=== PATIENT | female | born 1965 | race Caucasian/White ===

== ENCOUNTER → 2023-08-16 10:53 | Outpatient (REF) | payer BC, SELFPAY ==
[2023-08-16 12:23] LABS: % Basophils 0.8 % (0-2); % Immature Granulocytes 0.2 % (0-0.5); % Lymphocytes 34.1 % (20.5-51.1); % Monocytes 9.5 % (1.7-9.3); % Neutrophils 51.4 % (42.2-75.2); Absolute Basophils 0.1 10^3/uL (0-0.2); Absolute Eosinophils 0.3 10^3/uL (0-0.7); Absolute Lymphocytes 2.2 10^3/uL (1.2-3.4); Absolute Monocytes 0.6 10^3/uL (0.1-0.6); Absolute Neutrophils 3.3 10^3/uL (1.4-6.5); Hematocrit 38.4 % (37.0-47.0); Hemoglobin 12.7 g/dL (12.0-16.0); Mean Corp Hgb Conc. 33.1 g/dL (33.0-37.0); Mean Corpuscular Hgb 30.1 pg (27.0-31.0); Mean Platelet Volume 9.4 fL (7.4-10.4); Nucleated Red Blood Cells % 0 %; Platelet Count 201 10^3/uL (130-400); Red Blood Cell Count 4.22 10^6/uL (4.20-5.40); Red Cell Dist. Width 12.5 % (11.5-14.5); White Blood Cell Count 6.4 10^3/uL (4.8-10.8)
[2023-08-16 12:25] LABS: Urine Albumin Negative (Neg - Trace); Urine Bilirubin Negative (Negative); Urine Character Clear (Clear); Urine Color Yellow; Urine Glucose Negative (Negative); Urine Ketone Trace (Negative); Urine Leukocyte Trace (Negative); Urine Nitrite Negative (Negative); Urine Occult Blood Negative (Negative); Urine Specific Gravity 1.025 (<1.030); Urine Urobilinogen Negative (Neg - 1+)
[2023-08-16 12:44] LABS: ALT (SGPT) 22 U/L (0-35); AST (SGOT) 29 U/L (14-36); Albumin 4.5 g/dl (3.5-5.0); Alkaline Phosphatase 64 U/L (38-126); Blood Urea Nitrogen 26 mg/dl (7-17); Calcium 9.3 mg/dl (8.4-10.2); Carbon Dioxide 28 mmol/L (22-30); Chloride 103 mmol/L (98-107); Glucose 101 mg/dl (70-99); Potassium 4.6 mmol/L (3.5-5.1); Sodium 137 mmol/L (135-145); Total Bilirubin 0.7 mg/dl (0.2-1.3); Total Protein 7.6 g/dl (6.3-8.2); eGFR > 60.00
[2023-08-16 12:58] LABS: Urine Red Blood Cell 0-2 /HPF (0-2); Urine Squamous Cell 0-2 /LPF (Few)
[2023-08-18 21:17] LABS: CCP Antibody IgG/IgA 6 Units (0-19)
[2023-08-19 16:19] LABS: Rheumatoid Agglutinin Less Than 10 IU (<10 IU)
== END ==
LOC: HWLAB 10:53
PROVIDERS: ATTENDING PHYSICIAN Internal Medicine Rheumatology; FAMILY PHYSICIAN Internal Medicine
DX: E03.9 Hypothyroidism, unspecified (principal); E55.9 Vitamin D deficiency, unspecified; H04.123 Dry eye syndrome of bilateral lacrimal glands; M25.551 Pain in right hip; M36.8 Systemic disorders of connective tissue in other diseases classified elsewhere; M51.37 Other intervertebral disc degeneration, lumbosacral region; M79.641 Pain in right hand; Z68.26 Body mass index [BMI] 26.0-26.9, adult; Z79.899 Other long term (current) drug therapy
CPT/HCPCS: 36415; 80053; 81003; 81015; 85025; 86140; 86200; 86430

== ENCOUNTER → 2024-01-31 08:22 | Outpatient (REF) | payer BC, SELFPAY ==
[2024-01-31 10:10] LABS: % Eosinophils 2.7 % (0-6); % Immature Granulocytes 0.2 % (0-0.5); % Lymphocytes 41.2 % (20.5-51.1); % Monocytes 9.3 % (1.7-9.3); % Neutrophils 45.6 % (42.2-75.2); Absolute Basophils 0.1 10^3/uL (0-0.2); Absolute Eosinophils 0.1 10^3/uL (0-0.7); Absolute Monocytes 0.5 10^3/uL (0.1-0.6); Absolute Neutrophils 2.2 10^3/uL (1.4-6.5); Hematocrit 39.2 % (37.0-47.0); Hemoglobin 13.3 g/dL (12.0-16.0); Mean Corp Hgb Conc. 33.9 g/dL (33.0-37.0); Mean Corpuscular Hgb 31.8 pg (27.0-31.0); Mean Corpuscular Volume 93.8 fL (81.0-99.0); Mean Platelet Volume 9.4 fL (7.4-10.4); Nucleated Red Blood Cells % 0 %; Platelet Count 184 10^3/uL (130-400); Red Blood Cell Count 4.18 10^6/uL (4.20-5.40); Red Cell Dist. Width 11.9 % (11.5-14.5); White Blood Cell Count 4.9 10^3/uL (4.8-10.8)
[2024-01-31 10:27] LABS: Urine Albumin Negative (Neg - Trace); Urine Bilirubin Negative (Negative); Urine Character Clear (Clear); Urine Color Yellow; Urine Glucose Negative (Negative); Urine Ketone Negative (Negative); Urine Leukocyte Trace (Negative); Urine Nitrite Negative (Negative); Urine Occult Blood Negative (Negative); Urine Urobilinogen Negative (Neg - 1+)
[2024-01-31 10:32] LABS: Glycohemoglobin (HgbA1c) 5.5 % (4.0-5.6)
[2024-01-31 11:07] LABS: Urine Mucus Many
[2024-01-31 11:08] LABS: Urine Amorphous Seen; Urine Urothelial Cell 0-2 /LPF (FEW)
[2024-01-31 11:09] LABS: Urine Red Blood Cell 0-2 /HPF (0-2)
[2024-01-31 12:24] LABS: ALT (SGPT) 18 U/L (0-35); AST (SGOT) 30 U/L (14-36); Albumin 4.5 g/dl (3.5-5.0); Alkaline Phosphatase 48 U/L (38-126); Blood Urea Nitrogen 20 mg/dl (7-17); Calcium 9.3 mg/dl (8.4-10.2); Carbon Dioxide 28 mmol/L (22-30); Chloride 106 mmol/L (98-107); Glucose 98 mg/dl (70-99); HDL Cholesterol 99 mg/dl; LDL Cholesterol, Calculated 102 mg/dl; Potassium 4.8 mmol/L (3.5-5.1); Sodium 139 mmol/L (135-145); Total Bilirubin 0.6 mg/dl (0.2-1.3); Total Cholesterol 212 mg/dl (50-199); Triglyceride 55 mg/dl (10-149); Very Low Density Lipoprotein 11 mg/dl (0-30); eGFR 57.88
[2024-01-31 12:38] LABS: Vitamin D, 25-OH*** 33.2 ng/mL (30-80)
[2024-01-31 12:51] LABS: TSH Reflex To Free T4 1.03 uIU/ml (0.47-4.68)
[2024-01-31 12:52] LABS: Hepatitis B Surface Antigen Negative (Negative)
[2024-01-31 13:10] LABS: Hepatitis B Core Ab, Total Negative (Negative); Hepatitis B Surface Antibody Positive
== END ==
LOC: HWLAB 08:22
PROVIDERS: ATTENDING PHYSICIAN Internal Medicine
DX: Z00.00 Encounter for general adult medical examination without abnormal findings (principal); R73.03 Prediabetes; E78.5 Hyperlipidemia, unspecified; E55.9 Vitamin D deficiency, unspecified
CPT/HCPCS: 36415; 80053; 80061; 81003; 81015; 82306; 83036; 84443; 85025; 86704; 86706; 87340

== ENCOUNTER → 2024-06-05 09:24 | Outpatient (REF) | payer BC, SELFPAY | LOC: HWRAD 09:24 | PROVIDERS: ATTENDING PHYSICIAN Internal Medicine | DX: M79.671 Pain in right foot (principal); M79.672 Pain in left foot; G89.29 Other chronic pain | CPT/HCPCS: 73630 ==

== ENCOUNTER → 2024-07-08 10:27 | Outpatient (REF) | payer BC, SELFPAY ==
[2024-07-08 12:27] LABS: % Immature Granulocytes 0.2 % (0-0.5); % Lymphocytes 37.1 % (20.5-51.1); % Neutrophils 50.7 % (42.2-75.2); Absolute Basophils 0.1 10^3/uL (0-0.2); Absolute Eosinophils 0.1 10^3/uL (0-0.7); Absolute Lymphocytes 2.2 10^3/uL (1.2-3.4); Absolute Monocytes 0.5 10^3/uL (0.1-0.6); Hematocrit 39.5 % (37.0-47.0); Hemoglobin 13.1 g/dL (12.0-16.0); Mean Corp Hgb Conc. 33.2 g/dL (33.0-37.0); Mean Corpuscular Hgb 31.3 pg (27.0-31.0); Mean Corpuscular Volume 94.3 fL (81.0-99.0); Mean Platelet Volume 9.3 fL (7.4-10.4); Nucleated Red Blood Cells % 0 %; Platelet Count 182 10^3/uL (130-400); Red Blood Cell Count 4.19 10^6/uL (4.20-5.40); Red Cell Dist. Width 11.9 % (11.5-14.5); White Blood Cell Count 5.9 10^3/uL (4.8-10.8)
[2024-07-08 12:42] LABS: Urine Albumin Negative (Neg - Trace); Urine Bilirubin Negative (Negative); Urine Character Clear (Clear); Urine Color Yellow; Urine Glucose Negative (Negative); Urine Ketone Negative (Negative); Urine Leukocyte Negative (Negative); Urine Nitrite Negative (Negative); Urine Occult Blood Negative (Negative); Urine Urobilinogen Negative (Neg - 1+)
[2024-07-08 13:03] LABS: ALT (SGPT) 16 U/L (0-35); AST (SGOT) 27 U/L (14-36); Albumin 4.6 g/dl (3.5-5.0); Alkaline Phosphatase 48 U/L (38-126); Blood Urea Nitrogen 23 mg/dl (7-17); Calcium 9.5 mg/dl (8.4-10.2); Carbon Dioxide 29 mmol/L (22-30); Chloride 102 mmol/L (98-107); Glucose 97 mg/dl (70-99); Potassium 4.7 mmol/L (3.5-5.1); Sodium 138 mmol/L (135-145); Total Bilirubin 0.5 mg/dl (0.2-1.3); Total Protein 7.3 g/dl (6.3-8.2); eGFR > 60.00
[2024-07-08 13:30] LABS: C-Reactive Protein < 5.00 mg/L (0.0-10.00)
[2024-07-08 23:42] LABS: Complement C3 113 mg/dl (88-165)
[2024-07-10 08:02] LABS: ANA, IgG Reflex to HEp-2 None Detected (None Detected)
[2024-07-10 22:30] LABS: ds-DNA Ab, IgG Reflex To Titer 22 IU (0-24)
== END ==
LOC: HWLAB 10:27
PROVIDERS: ATTENDING PHYSICIAN Internal Medicine Rheumatology; FAMILY PHYSICIAN Internal Medicine
DX: E03.9 Hypothyroidism, unspecified (principal); E55.9 Vitamin D deficiency, unspecified; H04.123 Dry eye syndrome of bilateral lacrimal glands; M25.551 Pain in right hip; M36.8 Systemic disorders of connective tissue in other diseases classified elsewhere; M51.370 Other intervertebral disc degeneration, lumbosacral region with discogenic back pain only; M79.641 Pain in right hand; Z68.26 Body mass index [BMI] 26.0-26.9, adult; Z79.899 Other long term (current) drug therapy
CPT/HCPCS: 36415; 80053; 81003; 85025; 86038; 86140; 86160; 86225

== ENCOUNTER → 2025-01-28 08:03 | Outpatient (REF) | payer BC, SELFPAY ==
[2025-01-28 12:38] LABS: Hematocrit 38.1 % (37.0-47.0); Hemoglobin 12.9 g/dL (12.0-16.0); Mean Corp Hgb Conc. 33.9 g/dL (33.0-37.0); Mean Corpuscular Volume 96.2 fL (81.0-99.0); Nucleated Red Blood Cells % 0 %; Platelet Count 171 10^3/uL (130-400); Red Cell Dist. Width 11.9 % (11.5-14.5)
[2025-01-28 12:42] LABS: Urine Character Clear (Clear)
[2025-01-28 12:50] LABS: C-Reactive Protein < 5.00 mg/L (0.0-10.00)
[2025-01-28 12:52] LABS: ALT (SGPT) 17 U/L (0-35); AST (SGOT) 22 U/L (14-36); Albumin 4.4 g/dl (3.5-5.0); Alkaline Phosphatase 45 U/L (38-126); Blood Urea Nitrogen 23 mg/dl (7-17); Calcium 9.2 mg/dl (8.4-10.2); Carbon Dioxide 28 mmol/L (22-30); Chloride 108 mmol/L (98-107); Glucose 113 mg/dl (70-99); HDL Cholesterol 88 mg/dl; LDL Cholesterol, Calculated 103 mg/dl; Potassium 4.7 mmol/L (3.5-5.1); Sodium 141 mmol/L (135-145); Total Protein 7.0 g/dl (6.3-8.2); Very Low Density Lipoprotein 13 mg/dl (0-30); eGFR > 60.00
[2025-01-28 13:02] LABS: Glycohemoglobin (HgbA1c) 5.5 % (4.0-5.6)
[2025-01-28 13:11] LABS: Vitamin D, 25-OH*** 36.3 ng/mL (30-80)
[2025-01-28 13:38] LABS: Urine Squamous Cell >30 /LPF (Few)
[2025-01-28 13:39] LABS: Urine Urothelial Cell 16-20 /LPF (FEW)
[2025-01-28 13:41] LABS: Urine White Cell 26-30 /HPF (0-5)
[2025-01-28 13:42] LABS: Urine Red Blood Cell 0-2 /HPF (0-2)
[2025-01-28 14:00] LABS: Folate > 20.0 ng/ml (2.76-20); Vitamin B12 906 pg/ml (239-931)
[2025-01-31 02:08] LABS: ds-DNA Ab, IgG Reflex To Titer 17 IU (0-24)
== END ==
LOC: HWLAB 08:03
PROVIDERS: ATTENDING PHYSICIAN Internal Medicine Rheumatology; FAMILY PHYSICIAN Internal Medicine
DX: E53.8 Deficiency of other specified B group vitamins (principal); E55.9 Vitamin D deficiency, unspecified; H04.123 Dry eye syndrome of bilateral lacrimal glands; M36.8 Systemic disorders of connective tissue in other diseases classified elsewhere; M79.641 Pain in right hand; M79.642 Pain in left hand; Z79.899 Other long term (current) drug therapy
CPT/HCPCS: 36415; 80053; 80061; 81003; 81015; 82306; 82607; 82746; 83036; 84443; 85025; 86140; 86160; 86225

== ENCOUNTER → 2025-03-30 06:46 | Outpatient (REF) | payer BC, SELFPAY | LOC: MRI 3T 06:46 | PROVIDERS: ATTENDING PHYSICIAN Orthopaedic Surgery Hand Surgery; FAMILY PHYSICIAN Internal Medicine | DX: M25.511 Pain in right shoulder (principal) | CPT/HCPCS: 73221 ==

== ENCOUNTER 2025-05-18 06:51 | Outpatient (RCR) | payer BC, SELFPAY | END 2025-05-18 23:59 | disposition home or self-care (01) | LOC: RPT 06:51 | PROVIDERS: ATTENDING PHYSICIAN Orthopaedic Surgery Hand Surgery; FAMILY PHYSICIAN Internal Medicine | DX: M25.511 Pain in right shoulder (principal); Z73.6 Limitation of activities due to disability; M62.81 Muscle weakness (generalized) | CPT/HCPCS: 97010; 97110; 97140; 97162 ==

== ENCOUNTER 2025-06-08 17:41 | Outpatient (RCR) | payer BC, SELFPAY | END 2025-06-08 23:59 | disposition home or self-care (01) | LOC: RPT 17:41 | PROVIDERS: ATTENDING PHYSICIAN Orthopaedic Surgery Hand Surgery; FAMILY PHYSICIAN Internal Medicine | DX: M25.511 Pain in right shoulder (principal); Z73.6 Limitation of activities due to disability; M62.81 Muscle weakness (generalized) | CPT/HCPCS: 97010; 97110; 97140 ==